=== PATIENT | male | born 1980 | race Caucasian/White ===

== ENCOUNTER 2018-10-15 19:53 | Emergency (ER) | payer SELFPAY ==
[~2018-10-15] VITALS: Ht 175.3 cm; Wt 87.0 kg
[2018-10-15] MEDS ORDERED: FAMOTIDINE 20MG/2ML VIAL IV ONE (21:00)
[2018-10-15] MEDS ORDERED: METHYLPREDNISOLONE SOD SUCC 125 MG/2 ML VIAL IV ONE (21:00)
[2018-10-15 23:26] VITALS: BP 122/80
== END 2018-10-15 23:31 | disposition home or self-care (01) ==
LOC: ER 19:53
DX: T78.1XXA Other adverse food reactions, not elsewhere classified, initial encounter (principal); L27.2 Dermatitis due to ingested food; X58.XXXA Exposure to other specified factors, initial encounter; F17.210 Nicotine dependence, cigarettes, uncomplicated; Z91.013 Allergy to seafood
CPT/HCPCS: 96374; 96375; 99283; J2930; J3490; Z7610